=== PATIENT | female | born 1965 | race Hispanic/Latino ===

== ENCOUNTER 2019-10-10 14:09 | Emergency (ER) | payer MEDICARE ==
--- NOTE | 2019-10-10 15:12 | Emergency Department Report ---
ED CPR HPI - General Stated Complaint: CARDIAC ARREST Time Seen by Provider: 10/10/19 14:17 - History of Present Illness Initial Comments: 54-year-old female arrives with CPR in progress. Medics state that she has had ACLS protocols for the last 30 minutes without return of spontaneous circulation. She was given multiple milligrams of epinephrine. I am told that the arrest was witnessed by the caregiver and that the patient has a history of prior stroke. The patient was intubated in the field. She arrived with fixed and dilated pupils. Considering the length of resuscitative efforts and the failure to restore spontaneous circulation, she was pronounced DOA. Complaint: stopped breathing - Related Data Home Medications Medication Instructions Recorded Confirmed Last Taken Aspirin [Aspirin BABY CHEW TAB] 81 mg PO DAILY 02/17/14 02/17/14 02/16/14 Previous Rx's Medication Instructions Recorded Last Taken Type levETIRAcetam [Keppra] 750 mg PO BID 30 Days oral.liqd 02/22/14 Unknown Rx levoFLOXacin [Levaquin TAB] 750 mg PO Q24HR #3 tablet 02/22/14 Unknown Rx Allergies Allergy/AdvReac Type Severity Reaction Status Date / Time Unable to Assess Allergy Verified 02/17/14 00:58 ED Review of Systems ROS: Stated complaint: CARDIAC ARREST Other details as noted in HPI Comment: Unobtainable due to pts medical conditions ED Past Medical Hx - Past Medical History Hx Hypertension: Yes Hx Congestive Heart Failure: No Hx Diabetes: No Hx Seizures: Yes Hx Asthma: No Hx COPD: No - Surgical History Hx Breast Surgery: Yes - Social History Smoking Status: Unknown if ever smoked - Medications Home Medications: Home Medications Medication Instructions Recorded Confirmed Last Taken Type Aspirin [Aspirin BABY CHEW TAB] 81 mg PO DAILY 02/17/14 02/17/14 02/16/14 History levETIRAcetam [Keppra] 750 mg PO BID 30 Days oral.liqd 02/22/14 Unknown Rx levoFLOXacin [Levaquin TAB] 750 mg PO Q24HR #3 tablet 02/22/14 Unknown Rx ED Physical Exam - General Limitations: Other () - Head Head exam: Present: atraumatic - Eye Pupils: Present: other (Fixed and dilated) - ENT ENT exam: Present: other (Endotracheal tube in oropharynx) - Neck Neck exam: Present: normal inspection - Respiratory Respiratory exam: Present: other (No breath sounds are chest rise appreciated) - Cardiovascular Cardiovascular Exam: Present: other (Asystole on monitor) - GI/Abdominal GI/Abdominal exam: Present: soft - Extremities Exam Extremities exam: Present: other (No acute deformity) - Back Exam Back exam: Present: other (Deferred) - Neurological Exam Neurological exam: Present: other (GCS is 3) ED Course - Reevaluation(s) Reevaluation #1: Pronounced DOA 10/10/19 15:25 Reevaluation #2: Family has been counseled 10/10/19 15:25 Critical care attestation.: If time is entered above; I have spent that time in minutes in the direct care of this critically ill patient, excluding procedure time. ED Disposition Clinical Impression: Cardiac arrest Disposition: DC-20 Is pt being admited?: No Does the pt Need Aspirin: No Condition: Stable Time of Disposition: 15:26
== END 2019-10-10 18:29 ==
LOC: ED 14:09
DX: I46.9 Cardiac arrest, cause unspecified (principal); I10 Essential (primary) hypertension; R56.9 Unspecified convulsions; Z98.890 Other specified postprocedural states; Z79.2 Long term (current) use of antibiotics; Z79.899 Other long term (current) drug therapy